=== PATIENT | male | born 1945 ===

== ENCOUNTER 2017-05-06 18:28 | Inpatient (IN) | payer MEDICARE, MEDICAID ==
[~2017-05-06] VITALS: Ht 165.1 cm; Wt 54.4 kg
[2017-05-06 19:00] VITALS: BP 123/67
[2017-05-06] MEDS ORDERED: PROTONIX IV40 MG IV (19:16)
[2017-05-06] MEDS ORDERED: DILAUDID 22 MG/1 M1 IJ (19:16)
[2017-05-06] MEDS ORDERED: ACETAMINOPHEN120 MG RECTAL (19:16)
[2017-05-06] MEDS ORDERED: DIPHENHYDRAMINE25 M1 ORAL (19:16)
[2017-05-06] MEDS ORDERED: OCTREOTIDE100 MCG/2 IJ (19:16)
[2017-05-06 21:12] LABS: BASOPHILS % (AUTO) 0.4 % (0.0-2.0); EOSINOPHILS % (AUTO) 0.1 % (0.0-3.0); MEAN CORPUSCULAR HEMOGLOBIN 32.1 PG (27.0-31.0); MEAN CORPUSCULAR VOLUME 94 FL (80-99); MEAN PLATELET VOLUME 15.3 FL (6.5-10.1); NEUTROPHILS % (AUTO) 78.5 % (45.0-75.0); PLATELET COUNT 241 K/UL (150-450); RED BLOOD COUNT 2.89 M/UL (4.70-6.10); RED CELL DISTRIBUTION WIDTH 17.7 % (11.6-14.8)
[2017-05-06 21:48] LABS: ALANINE AMINOTRANSFERASE 85 U/L (3-41); ALBUMIN/GLOBULIN RATIO 0.5 (1.0-2.7); ANION GAP 8 (5-15); ASPARTATE AMINO TRANSFERASE 115 U/L (5-40); CALCIUM 7.4 mg/dL (8.6-10.2); CARBON DIOXIDE 27 mEQ/L (20-30); CHLORIDE 104 mEQ/L (98-107); CREATININE 0.6 mg/dL (0.7-1.2); GLOMERULAR FILTRATION RATE > 60 mL/min (>60); HEMOLYSIS 1; SODIUM 139 mEQ/L (135-145); TOTAL PROTEIN 6.4 g/dL (6.6-8.7)
[2017-05-06 21:49] LABS: POTASSIUM 2.5 mEQ/L (3.4-4.9)
--- NOTE | 2017-05-06 21:56 | Emergency Room Report ---
History of Present Illness General Chief Complaint: Abnormal Labs Source: Patient, Family Member, Medical Record (LIO SMITH) Present Illness HPI The patient is a 71-year-old male with a history of neuroendocrine tumor, partial gastrectomy, pancreatectomy, and splenectomy presenting for hypokalemia. The patient had blood work done today which showed potassium of 2.9. He admits to chronic abdominal pain described as a 10 out of 10 diffuse dull ache. Pain does not radiate. He denies any other symptoms. He denies chest pain or shortness of breath (LIO SMITH P.AMary Kate) Allergies: Coded Allergies: LORAZEPAM (Verified Allergy, Unknown, 05/06/17) Patient History Past Medical History: see triage record Pertinent Family History: none Reviewed Nursing Documentation: PMH: Agreed, PSxH: Agreed (LIO SMITH) Nursing Documentation-PMH Past Medical History: No History, Except For (LIO SMITH.Tolu) Review of Systems All Other Systems: negative except mentioned in HPI (LIO SMITH P.AMary Kate) Physical Exam Vital Signs Date Time Temp Pulse Resp B/P Pulse Ox O2 Delivery O2 Flow Rate FiO2 05/06/17 18:23 98.8 65 18 123/67 94 Room Air Sp02 EP Interpretation: reviewed, normal General Appearance: no apparent distress, alert, GCS 15, non-toxic Head: normocephalic, atraumatic Eyes: bilateral eye PERRL, bilateral eye normal inspection ENT: hearing grossly normal, normal pharynx, no angioedema, normal voice Respiratory: chest non-tender, lungs clear, normal breath sounds, speaking full sentences Cardiovascular #1: regular rate, rhythm, no edema Gastrointestinal: soft, no guarding, tenderness - diffuse, other - surgical scars Genitourinary: normal inspection, no CVA tenderness Musculoskeletal: back normal, gait/station normal, normal range of motion, non- tender Neurologic: alert, oriented x3, responsive, motor strength/tone normal, sensory intact, speech normal Psychiatric: judgement/insight normal, memory normal, mood/affect normal, no suicidal/homicidal ideation Skin: normal color, no rash, warm/dry, well hydrated (LIO SMITH) Medical Decision Making PA Attestation Dr. Swan is my supervising physician. Patient management was discussed with my supervising physician (LIO SMITH) Diagnostic Impression: Primary Impression: Hypokalemia Additional Impression: Leukocytosis Qualified Codes: D72.828 - Other elevated white blood cell count ER Course The pt is a 71 yo M presenting for hypokalemia DDx considered but not limited to: hypokalemia, arrhythmia, MELIDA, among others PE: vitals WNL. NAD RRR. Abd is diffusely tender. CBC: leukocytosis, anemia CMP: Significant hypokalemia at 2.5 The patient is given fluids and pain medication through central line. 20 mEq of potassium replenished via central line. The patient needs to be admitted due to significant hypokalemia as well as leukocytosis. Adams has spoken with the admitting physician. Patient agrees with this plan Laboratory Tests Test 05/06/17 21:00 White Blood Count 15.0 K/UL (4.8-10.8) H Red Blood Count 2.89 M/UL (4.70-6.10) L Hemoglobin 9.3 G/DL (14.2-18.0) L Hematocrit 27.2 % (42.0-52.0) L Mean Corpuscular Volume 94 FL (80-99) Mean Corpuscular Hemoglobin 32.1 PG (27.0-31.0) H Mean Corpuscular Hemoglobin Concent 34.0 G/DL (32.0-36.0) Red Cell Distribution Width 17.7 % (11.6-14.8) H Platelet Count 241 K/UL (150-450) Mean Platelet Volume 15.3 FL (6.5-10.1) H Neutrophils (%) (Auto) 78.5 % (45.0-75.0) H Lymphocytes (%) (Auto) 18.0 % (20.0-45.0) L Monocytes (%) (Auto) 3.0 % (1.0-10.0) Eosinophils (%) (Auto) 0.1 % (0.0-3.0) Basophils (%) (Auto) 0.4 % (0.0-2.0) Sodium Level 139 mEQ/L (135-145) Potassium Level 2.5 mEQ/L (3.4-4.9) *L Chloride Level 104 mEQ/L (98-107) Carbon Dioxide Level 27 mEQ/L (20-30) Anion Gap 8 (5-15) Blood Urea Nitrogen 12 mg/dL (7-23) Creatinine 0.6 mg/dL (0.7-1.2) L Estimate Glomerular Filtration Rate > 60 mL/min (>60) Glucose Level 134 mg/dL (74-106) H Calcium Level 7.4 mg/dL (8.6-10.2) L Total Bilirubin 3.1 mg/dL (0.0-1.2) H Direct Bilirubin 2.3 mg/dL (0.1-0.3) H Aspartate Amino Transferase (AST) 115 U/L (5-40) H Alanine Aminotransferase (ALT) 85 U/L (3-41) H Alkaline Phosphatase 424 U/L (40-129) H Total Protein 6.4 g/dL (6.6-8.7) L Albumin 2.2 g/dL (3.5-5.2) L Globulin 4.2 g/dL Albumin/Globulin Ratio 0.5 (1.0-2.7) L Lab Results Impression CBC: leukocytosis, anemia CMP: Significant hypokalemia at 2.5 (LIO SMITH P.A.) ER Course I examined this patient and agree with the above assessment. I discussed the patient with Dr. Jiang who requested we speak with Dr. Swanson. Patient admitted medical floor Dr. Swanson. (Sahil Swan M.D.) Last Vital Signs Date Time Temp Pulse Resp B/P Pulse Ox O2 Delivery O2 Flow Rate FiO2 05/06/17 18:23 98.8 65 18 123/67 94 Room Air Status: improved (LIO SMITH P.A.) Last Vital Signs Date Time Temp Pulse Resp B/P Pulse Ox O2 Delivery O2 Flow Rate FiO2 05/06/17 18:23 98.8 65 18 123/67 94 Room Air Status: improved (Sahil Swan M.D.) Disposition: ADMITTED INPATIENT Condition: Serious LIO SMITH P.AMary Kate May 06, 2017 21:56 Sahil Swan M.D. May 07, 2017 02:13
[2017-05-06] MEDS ORDERED: HYDROmorphone 2 MG in NS 55 ML IVPB ONE (22:00)
[2017-05-06 22:08] LABS: BILIRUBIN,DIRECT 2.3 mg/dL (0.1-0.3)
[2017-05-06] MEDS ORDERED: DiphenhydrAMINE 50mg/ml Inj IVP ONE (22:30)
[2017-05-06] MEDS ORDERED: HYDROmorphone 1mg/ml Carpuject IVP ONE (23:55)
[2017-05-07] MEDS ORDERED: DiphenhydrAMINE 50mg/ml Inj IVP PRN (03:15)
[2017-05-07] MEDS ORDERED: Acetaminophen 650 MG SUPP RECTAL PRN (03:15)
[2017-05-07] MEDS ORDERED: Lactulose 20gm/30ml UDC ORAL PRN (03:15)
[2017-05-07] MEDS ORDERED: Norco 5mg/325mg tab ORAL PRN ×2 (03:15→05:15)
[2017-05-07 04:00] VITALS: BP 132/71
[2017-05-07] MEDS: SandoSTATIN 100mcg/ml amp SUBQ SCH ×3 (05:55→21:46)
[2017-05-07 08:00] VITALS: BP 149/77
[2017-05-07] MEDS: Dyna-Hex 2% Top Sol 8oz TOPIC SCH (09:42)
[2017-05-07] MEDS: Pantoprazole Inj IVP SCH (09:42)
[2017-05-07] MEDS: Heparin 5000 units/ml inj SUBQ SCH ×2 (09:43→20:19)
[2017-05-07 10:43] LABS: BASOPHILS % (AUTO) 0.7 % (0.0-2.0); EOSINOPHILS % (AUTO) 0.1 % (0.0-3.0); LYMPHOCYTES % (AUTO) 19.4 % (20.0-45.0); MEAN CORPUSCULAR HEMOGLOBIN 30.7 PG (27.0-31.0); MEAN CORPUSCULAR HGB CONC 32.2 G/DL (32.0-36.0); MEAN CORPUSCULAR VOLUME 95 FL (80-99); MEAN PLATELET VOLUME 13.5 FL (6.5-10.1); MONOCYTES % (AUTO) 3.2 % (1.0-10.0); NEUTROPHILS % (AUTO) 76.6 % (45.0-75.0); PLATELET COUNT 244 K/UL (150-450); RED BLOOD COUNT 3.08 M/UL (4.70-6.10); RED CELL DISTRIBUTION WIDTH 17.7 % (11.6-14.8); WHITE BLOOD COUNT 12.6 K/UL (4.8-10.8)
[2017-05-07 11:07] LABS: CALCIUM 7.8 mg/dL (8.6-10.2); CARBON DIOXIDE 25 mEQ/L (20-30); CHLORIDE 97 mEQ/L (98-107); CREATININE 0.6 mg/dL (0.7-1.2); GLOMERULAR FILTRATION RATE > 60 mL/min (>60); HEMOLYSIS 3; SODIUM 134 mEQ/L (135-145)
[2017-05-07 11:23] LABS: ANION GAP 12 (5-15)
[2017-05-07 11:24] LABS: POTASSIUM 2.7 mEQ/L (3.4-4.9)
[2017-05-07 12:00] VITALS: BP 142/68
[2017-05-07] MEDS: D5NS 1,000 ML IV SCH (15:53)
[2017-05-07 16:00] VITALS: BP 139/74
[2017-05-07 20:00] VITALS: BP 145/77
--- NOTE | 2017-05-07 21:45 | History and Physical Report ---
DATE OF ADMISSION: 05/06/2017 HISTORY OF PRESENT ILLNESS: This is a 71-year-old male that I know well from previous admissions at outside hospital. The patient has a history of partial gastrectomy for neuroendocrine gastric tumor. He had also undergone pancreatectomy and splenectomy at the same time. He had a prolonged hospitalization at that point in time and then he was discharged. He now represents to the [facility] with complaints of abdominal pain. He also reports feeling week. His initial potassium was 2.9. He was admitted to hospital for management of both the pain as well as correction of hypokalemia. PAST MEDICAL HISTORY: As discussed above is notable for neuroendocrine tumor, status post gastrectomy. HOME MEDICATIONS: The patient at this time denies and noted, however, he is on Pool, lactulose, and Protonix. REVIEW OF SYSTEMS: The patient denies any headache, hematemesis, melena, or hematochezia. PHYSICAL EXAMINATION: GENERAL: Revealed a 71-year-old male. HEENT: Unremarkable. CHEST: Clear breath sounds bilaterally. ABDOMEN: Soft and nontender. Surgical scars are noted. VITAL SIGNS: Blood pressure is 140/70, heart rate , respirations 18, and he is afebrile. LABORATORY DATA: Lab testing shows potassium this morning repeated is again 2.7 and sodium 134. White count 12.6 and hemoglobin 0.5. IMAGING STUDIES: None. IMPRESSION: 1. Hypokalemia. 2. Status post surgery for neuroendocrine tumor/partical gastrectomy. DISCUSSION: Admitted to the hospital. Continue home medications. We will consult Gastroenterology. Replace potassium. IV fluids. We will follow carefully. Vinnie Swanson M.D. DR: BENTLEY JOB#: [id number] CC:
--- NOTE | 2017-05-07 21:45 | Consultation ---
DATE OF CONSULTATION: 05/07/2017 CONSULTING PHYSICIAN: Ariel Trevizo M.D. REFERRING PHYSICIAN: Vinnie Swanson M.D. CHIEF COMPLAINT: Diarrhea and abdominal pain HISTORY OF PRESENT ILLNESS: This is a very pleasant unfortunate 71-year-old male who is having abdominal pain, GI bleeding from neuroendocrine tumor of the stomach, major surgery according to him. He was admitted to the hospital mainly because of diarrhea and abdominal pain. PAST MEDICAL HISTORY: 1. History of neuroendocrine tumor of the stomach, status post surgery. 2. Anemia. ALLERGIES: To lorazepam. MEDICATIONS: Please see medication reconciliation list. SOCIAL HISTORY: The patient denies any tobacco, alcohol, or illicit drug abuse. FAMILY HISTORY: Noncontributory. REVIEW OF SYSTEMS: A 10-point review of systems was performed and pertinent positives in history of present illness. PAST SURGICAL HISTORY: As described above. PHYSICAL EXAMINATION: VITAL SIGNS: Temperature is 97.2 degrees, pulse is 64, respirations 18, and blood pressure is 149/77. HEENT: Normocephalic and atraumatic. Sclerae anicteric. NECK: Supple. No lymphadenopathy. CARDIOVASCULAR: Regular rate and rhythm. Plus S1 and S2. No obvious murmur. LUNGS: Decreased breath sounds bilaterally. ABDOMEN: Soft. There is a scar in the midline from prior abdominal surgery. No rebound. No guarding. No peritoneal signs. Bowel sounds are present. EXTREMITIES: No cyanosis, no clubbing, and no edema. LABORATORY DATA: Sodium 134, potassium 2.7, BUN 16, and creatinine 0.6. Liver function tests elevated. Bilirubin 3.1, direct bilirubin 2.3. AST of 115, ALT of 84, and alkaline phosphatase of 424. White blood cell count of , hemoglobin 9.5, hematocrit 29, and platelets are 244,000. ASSESSMENT AND PLAN: 1. Neuroendocrine tumor of the stomach, status post surgery. 2. Diarrhea. 3. Rule out Clostridium difficile. 4. Anemia. 5. Abnormal liver function tests. PLAN: 1. Stool for C. difficile pending. We will follow. 2. We will repeat liver function tests tomorrow. 3. We will order an abdominal ultrasound. 4. We will order hepatitis panel. 5. Monitor labs. 6. Transfuse as needed. 7. Stool for OB ordered, pending. 8. Hold GI procedure at this time. I want to thank, Dr. Swanson, for this kind referral. Ariel Trevizo M.D. DR: ELSA JOB#: [id number] CC: Vinnie Swanson M.D.; Fax#: [phone]
[2017-05-08] VITALS (7 sets, daily range): BP systolic 143–167; BP diastolic 74–96
[2017-05-08] MEDS: D5NS 1,000 ML IV SCH ×2 (03:57→17:10)
[2017-05-08] MEDS: SandoSTATIN 100mcg/ml amp SUBQ SCH ×3 (05:37→22:51)
[2017-05-08 07:35] LABS: BASOPHILS % (AUTO) 1.3 % (0.0-2.0); EOSINOPHILS % (AUTO) 2.6 % (0.0-3.0); LYMPHOCYTES % (AUTO) 31.1 % (20.0-45.0); MEAN CORPUSCULAR HEMOGLOBIN 30.5 PG (27.0-31.0); MEAN CORPUSCULAR HGB CONC 31.9 G/DL (32.0-36.0); MEAN CORPUSCULAR VOLUME 96 FL (80-99); MEAN PLATELET VOLUME 13.9 FL (6.5-10.1); MONOCYTES % (AUTO) 9.9 % (1.0-10.0); NEUTROPHILS % (AUTO) 55.1 % (45.0-75.0); PLATELET COUNT 234 K/UL (150-450); RED BLOOD COUNT 3.13 M/UL (4.70-6.10); RED CELL DISTRIBUTION WIDTH 16.9 % (11.6-14.8); WHITE BLOOD COUNT 6.7 K/UL (4.8-10.8)
[2017-05-08 07:56] LABS: ALANINE AMINOTRANSFERASE 85 U/L (3-41); ALBUMIN/GLOBULIN RATIO 0.5 (1.0-2.7); ANION GAP 7 (5-15); ASPARTATE AMINO TRANSFERASE 115 U/L (5-40); CARBON DIOXIDE 30 mEQ/L (20-30); CHLORIDE 99 mEQ/L (98-107); CREATININE 0.8 mg/dL (0.7-1.2); GLOMERULAR FILTRATION RATE > 60 mL/min (>60); POTASSIUM 2.8 mEQ/L (3.4-4.9); SODIUM 136 mEQ/L (135-145); TOTAL PROTEIN 6.4 g/dL (6.6-8.7)
[2017-05-08 08:22] LABS: HEMOLYSIS 0; IRON 39 ug/dL (59-158); TOTAL IRON BINDING CAPACITY 187 ug/dL (250-400)
[2017-05-08 08:26] LABS: BILIRUBIN,DIRECT 2.2 mg/dL (0.1-0.3)
--- NOTE | 2017-05-08 08:35 | General Progress Note ---
Assessment/Plan Assessment/Plan ASSESSMENT AND PLAN: 1. Neuroendocrine tumor of the stomach, status post surgery. 2. Diarrhea. 3. Rule out Clostridium difficile. 4. Anemia. 5. Abnormal liver function tests. PLAN: 1. Stool for C. difficile pending. We will follow. 2. We will repeat liver function tests tomorrow. 3. abdominal ultrasound pend for today 4. fu hepatitis panel. 5. Monitor labs. 6. Transfuse as needed. 7. Stool for OB ordered, pending. 8. Hold GI procedure at this time. Subjective ROS Limited/Unobtainable: Yes Allergies: Coded Allergies: LORAZEPAM (Verified Allergy, Unknown, 05/06/17) Subjective no event Objective Last 24 Hour Vital Signs Date Time Temp Pulse Resp B/P Pulse Ox O2 Delivery O2 Flow Rate FiO2 05/08/17 04:00 98.4 61 20 143/89 98 Room Air 05/08/17 00:00 98.1 68 20 147/91 97 Room Air 05/07/17 20:00 97.9 64 20 145/77 96 Room Air 05/07/17 16:24 97.2 05/07/17 16:00 98.0 60 18 139/74 99 Room Air 05/07/17 12:00 98.0 60 18 142/68 98 Room Air Intake and Output 05/07/17 05/08/17 19:00 07:00 Intake Total 705 ml 975 ml Output Total 850 ml Balance 705 ml 125 ml Intake Oral 480 ml IV Total 225 ml 975 ml Output Urine Total 850 ml # Voids 4 # Bowel Movements 2 Laboratory Tests 05/07/17 09:50: White Blood Count 12.6H, Red Blood Count 3.08L, Hemoglobin 9.5L, Hematocrit 29.4L, Mean Corpuscular Volume 95, Mean Corpuscular Hemoglobin 30.7, Mean Corpuscular Hemoglobin Concent 32.2, Red Cell Distribution Width 17.7H, Platelet Count 244, Mean Platelet Volume 13.5H, Neutrophils (%) (Auto) 76.6H, Lymphocytes (%) (Auto) 19.4L, Monocytes (%) (Auto) 3.2, Eosinophils (%) (Auto) 0.1, Basophils (%) (Auto) 0.7, Sodium Level 134L, Potassium Level 2.7*L, Chloride Level 97L, Carbon Dioxide Level 25, Anion Gap 12, Blood Urea Nitrogen 13, Creatinine 0.6L, Estimat Glomerular Filtration Rate > 60, Glucose Level 115H , Calcium Level 7.8L, Pro-B-Type Natriuretic Peptide 630H 05/07/17 15:15: Stool Occult Blood [Pending] 05/08/17 06:00: White Blood Count 6.7, Red Blood Count 3.13L, Hemoglobin 9.5L, Hematocrit 29.9L , Mean Corpuscular Volume 96, Mean Corpuscular Hemoglobin 30.5, Mean Corpuscular Hemoglobin Concent 31.9L, Red Cell Distribution Width 16.9H, Platelet Count 234, Mean Platelet Volume 13.9H, Neutrophils (%) (Auto) 55.1, Lymphocytes (%) (Auto) 31.1, Monocytes (%) (Auto) 9.9, Eosinophils (%) (Auto) 2.6, Basophils (%) (Auto) 1.3, Sodium Level 136, Potassium Level 2.8L, Chloride Level 99, Carbon Dioxide Level 30, Anion Gap 7, Blood Urea Nitrogen 13, Creatinine 0.8, Estimat Glomerular Filtration Rate > 60, Glucose Level 104, Calcium Level 8.0L, Iron Level 39L, Total Iron Binding Capacity 187L, Percent Iron Saturation 21, Unsaturated Iron Binding 148, Total Bilirubin 3.1H, Direct Bilirubin 2.2H, Aspartate Amino Transf (AST/SGOT) 115H, Alanine Aminotransferase (ALT/SGPT) 85H, Alkaline Phosphatase 424H, Total Protein 6.4L, Albumin 2.2L, Globulin 4.2, Albumin/Globulin Ratio 0.5L, Carcinoembryonic Antigen 6.0H, Vitamin B12 Level 1546H, Folate [Pending], Hepatitis A IgM Antibody [Pending], Hepatitis B Surface Antigen [Pending], Hepatitis B Core IgM Antibody [Pending], Hepatitis C Antibody [Pending] Height (Feet): 5 Height (Inches): 5.00 Weight (Pounds): 120 General Appearance: alert EENT: normal ENT inspection Neck: supple Cardiovascular: normal rate Respiratory/Chest: decreased breath sounds Abdomen: normal bowel sounds, non tender, soft Extremities: non-tender MISHA LUNA May 08, 2017 08:35
[2017-05-08] MEDS ORDERED: KCl 10% 40mEq/30ml liquid NG ONE (09:30)
--- NOTE | 2017-05-08 09:48 | Pulmonology Progress Note ---
Assessment/Plan Assessment/Plan IMPRESSION: 1. Hypokalemia. 2. Status post surgery for neuroendocrine tumor/partical gastrectomy. DISCUSSION: Seen by Gastroenterology. Replace potassium. IV fluids. We will follow carefully. Subjective Interval Events: Better; pain decreased Constitutional: Reports: no symptoms HEENT: Repors: no symptoms Respiratory: Reports: no symptoms Cardiovascular: Reports: no symptoms Allergies: Coded Allergies: LORAZEPAM (Verified Allergy, Unknown, 05/06/17) Objective Last 24 Hour Vital Signs Date Time Temp Pulse Resp B/P Pulse Ox O2 Delivery O2 Flow Rate FiO2 05/08/17 04:00 98.4 61 20 143/89 98 Room Air 05/08/17 00:00 98.1 68 20 147/91 97 Room Air 05/07/17 20:00 97.9 64 20 145/77 96 Room Air 05/07/17 16:24 97.2 05/07/17 16:00 98.0 60 18 139/74 99 Room Air 05/07/17 12:00 98.0 60 18 142/68 98 Room Air Intake and Output 05/07/17 05/08/17 19:00 07:00 Intake Total 705 ml 975 ml Output Total 850 ml Balance 705 ml 125 ml Intake Oral 480 ml IV Total 225 ml 975 ml Output Urine Total 850 ml # Voids 4 # Bowel Movements 2 General Appearance: no acute distress HEENT: normocephalic Respiratory/Chest: chest wall non-tender, lungs clear Cardiovascular: normal peripheral pulses, normal rate Laboratory Tests 05/07/17 09:50: White Blood Count 12.6H, Red Blood Count 3.08L, Hemoglobin 9.5L, Hematocrit 29.4L, Mean Corpuscular Volume 95, Mean Corpuscular Hemoglobin 30.7, Mean Corpuscular Hemoglobin Concent 32.2, Red Cell Distribution Width 17.7H, Platelet Count 244, Mean Platelet Volume 13.5H, Neutrophils (%) (Auto) 76.6H, Lymphocytes (%) (Auto) 19.4L, Monocytes (%) (Auto) 3.2, Eosinophils (%) (Auto) 0.1, Basophils (%) (Auto) 0.7, Sodium Level 134L, Potassium Level 2.7*L, Chloride Level 97L, Carbon Dioxide Level 25, Anion Gap 12, Blood Urea Nitrogen 13, Creatinine 0.6L, Estimat Glomerular Filtration Rate > 60, Glucose Level 115H , Calcium Level 7.8L, Pro-B-Type Natriuretic Peptide 630H 05/07/17 15:15: Stool Occult Blood Negative 05/08/17 06:00: White Blood Count 6.7, Red Blood Count 3.13L, Hemoglobin 9.5L, Hematocrit 29.9L , Mean Corpuscular Volume 96, Mean Corpuscular Hemoglobin 30.5, Mean Corpuscular Hemoglobin Concent 31.9L, Red Cell Distribution Width 16.9H, Platelet Count 234, Mean Platelet Volume 13.9H, Neutrophils (%) (Auto) 55.1, Lymphocytes (%) (Auto) 31.1, Monocytes (%) (Auto) 9.9, Eosinophils (%) (Auto) 2.6, Basophils (%) (Auto) 1.3, Sodium Level 136, Potassium Level 2.8L, Chloride Level 99, Carbon Dioxide Level 30, Anion Gap 7, Blood Urea Nitrogen 13, Creatinine 0.8, Estimat Glomerular Filtration Rate > 60, Glucose Level 104, Calcium Level 8.0L, Iron Level 39L, Total Iron Binding Capacity 187L, Percent Iron Saturation 21, Unsaturated Iron Binding 148, Total Bilirubin 3.1H, Direct Bilirubin 2.2H, Aspartate Amino Transf (AST/SGOT) 115H, Alanine Aminotransferase (ALT/SGPT) 85H, Alkaline Phosphatase 424H, Total Protein 6.4L, Albumin 2.2L, Globulin 4.2, Albumin/Globulin Ratio 0.5L, Carcinoembryonic Antigen 6.0H, Vitamin B12 Level 1546H, Folate [Pending], Hepatitis A IgM Antibody [Pending], Hepatitis B Surface Antigen [Pending], Hepatitis B Core IgM Antibody [Pending], Hepatitis C Antibody [Pending] Current Medications Medications (Trade) Dose Ordered Sig/Horacio Route PRN Reason Start Time Stop Time Status Last Admin Dose Admin Acetaminophen (Tylenol) 650 mg Q6H PRN RECTAL Prn Headache/Temp > 101 05/07/17 03:15 06/06/17 03:14 Acetaminophen/ Hydrocodone Bitart (Sheldon 5/325) 1 tab Q6H PRN ORAL Moderate Pain (Pain Scale 4-6) 05/07/17 05:15 05/14/17 05:14 05/07/17 05:17 Chlorhexidine Gluconate 1 applic 1 applic DAILY TOPIC 05/07/17 09:00 06/06/17 08:59 05/07/17 09:42 Dextrose/Sodium Chloride 1,000 ml @ 75 mls/hr [id number] IV 05/07/17 14:30 06/06/17 14:29 05/08/17 03:57 Diphenhydramine HCl (Benadryl) 25 mg BEDTIME PRN IVP INSOMNIA 05/07/17 03:15 06/06/17 03:14 Heparin Sodium (Porcine) (Heparin 5000 units/ml) 5,000 units EVERY 12 HOURS SUBQ 05/07/17 09:00 06/06/17 08:59 05/07/17 20:19 Hydromorphone HCl (Dilaudid) 2 mg Q3H PRN IVP Severe Breakthru Pain (>7) 05/07/17 03:15 05/14/17 03:14 05/08/17 05:39 Lactulose (Cephulac) 20 gm HSPRN PRN ORAL Constipation 05/07/17 03:15 06/06/17 03:14 05/07/17 05:16 Octreotide Acetate (SandoSTATIN) 100 mcg Q8HR SUBQ 05/07/17 06:00 06/06/17 05:59 05/08/17 05:37 Pantoprazole (Protonix) 40 mg DAILY IVP 05/07/17 09:00 06/06/17 08:59 05/07/17 09:42 Potassium Chloride (KCl 20mEq/100ml Premix) 100 ml @ 50 mls/hr ONCE ONCE IVPB 05/08/17 10:00 05/08/17 11:59 Vinnie Swanson MD May 08, 2017 09:48
[2017-05-08] MEDS: Dyna-Hex 2% Top Sol 8oz TOPIC SCH (10:11)
[2017-05-08] MEDS: Pantoprazole Inj IVP SCH (10:12)
[2017-05-08] MEDS: Heparin 5000 units/ml inj SUBQ SCH ×2 (10:16→20:42)
[2017-05-08] MEDS ORDERED: D5NS 1000ml IV ONE (10:19)
[2017-05-08] MEDS ORDERED: Tubing IV Secondary IV ONE (15:49)
[2017-05-09] VITALS (7 sets, daily range): BP systolic 143–174; BP diastolic 83–94
[2017-05-09] MEDS: D5NS 1,000 ML IV SCH ×2 (01:00→21:54)
[2017-05-09] MEDS: SandoSTATIN 100mcg/ml amp SUBQ SCH ×3 (05:51→22:17)
[2017-05-09 05:58] LABS: BASOPHILS % (AUTO) 1.5 % (0.0-2.0); EOSINOPHILS % (AUTO) 2.1 % (0.0-3.0); LYMPHOCYTES % (AUTO) 46.8 % (20.0-45.0); MEAN CORPUSCULAR HEMOGLOBIN 29.7 PG (27.0-31.0); MEAN CORPUSCULAR HGB CONC 31.6 G/DL (32.0-36.0); MEAN CORPUSCULAR VOLUME 94 FL (80-99); MEAN PLATELET VOLUME 13.3 FL (6.5-10.1); NEUTROPHILS % (AUTO) 39.6 % (45.0-75.0); PLATELET COUNT 267 K/UL (150-450); RED BLOOD COUNT 3.39 M/UL (4.70-6.10); RED CELL DISTRIBUTION WIDTH 16.8 % (11.6-14.8); WHITE BLOOD COUNT 5.4 K/UL (4.8-10.8)
[2017-05-09 06:10] LABS: ALANINE AMINOTRANSFERASE 84 U/L (3-41); ALBUMIN/GLOBULIN RATIO 0.5 (1.0-2.7); ASPARTATE AMINO TRANSFERASE 100 U/L (5-40); CALCIUM 7.9 mg/dL (8.6-10.2); CARBON DIOXIDE 33 mEQ/L (20-30); CHLORIDE 94 mEQ/L (98-107); CREATININE 0.7 mg/dL (0.7-1.2); GLOMERULAR FILTRATION RATE > 60 mL/min (>60); HEMOLYSIS 2; SODIUM 134 mEQ/L (135-145); TOTAL PROTEIN 6.7 g/dL (6.6-8.7)
[2017-05-09 06:15] LABS: ANION GAP 7 (5-15)
[2017-05-09 06:41] LABS: POTASSIUM 2.7 mEQ/L (3.4-4.9)
[2017-05-09 07:00] LABS: BILIRUBIN,DIRECT 2.2 mg/dL (0.1-0.3)
[2017-05-09 07:55] LABS: MAGNESIUM 1.8 mg/dL (1.7-2.5); PHOSPHORUS 1.9 mg/dL (2.5-4.8)
[2017-05-09] MEDS: Pantoprazole Inj IVP SCH (08:26)
[2017-05-09] MEDS: Dyna-Hex 2% Top Sol 8oz TOPIC SCH (08:28)
[2017-05-09] MEDS: Heparin 5000 units/ml inj SUBQ SCH ×2 (08:28→22:01)
[2017-05-09] MEDS ORDERED: Sodium Phosphate 30 MM in Sodium Chloride 550 ML IVPB ONE (11:00)
--- NOTE | 2017-05-09 13:35 | GI Progress Note ---
Assessment/Plan Status: unchanged Status Narrative Discussed with Dr. Trevizo. Assessment/Plan ASSESSMENT AND PLAN: 1. Neuroendocrine tumor of the stomach, status post surgery. >> KEEP NPO, will start TPN. 2. Diarrhea. 3. Rule out Clostridium difficile >> negative 4. Anemia. 5. Abnormal liver function tests. 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, transfuse prn fu OB stool hold GI procedures for now fu labs Subjective Subjective limited Objective Last 24 Hour Vital Signs Date Time Temp Pulse Resp B/P Pulse Ox O2 Delivery O2 Flow Rate FiO2 05/09/17 12:00 97.0 66 20 150/84 99 Room Air 05/09/17 08:00 98.6 63 20 174/86 99 Room Air 05/09/17 04:00 97.3 65 18 151/83 97 Room Air 05/09/17 03:34 98.1 05/09/17 01:00 66 159/91 05/09/17 00:00 97.9 65 20 167/94 99 Room Air 05/08/17 20:35 98.1 67 18 153/74 98 Room Air 05/08/17 20:00 97.9 64 18 167/96 97 Room Air 05/08/17 16:00 98.1 69 18 153/91 97 Room Air Intake and Output 05/08/17 05/09/17 19:00 07:00 Intake Total 1525 ml 675 ml Balance 1525 ml 675 ml Intake Oral 800 ml IV Total 725 ml 675 ml # Voids 4 Laboratory Tests Test 05/09/17 05:07 05/09/17 05:09 Phosphorus Level 1.9 mg/dL (2.5-4.8) L Magnesium Level 1.8 mg/dL (1.7-2.5) White Blood Count 5.4 K/UL (4.8-10.8) Red Blood Count 3.39 M/UL (4.70-6.10) L Hemoglobin 10.1 G/DL (14.2-18.0) L Hematocrit 31.9 % (42.0-52.0) L Mean Corpuscular Volume 94 FL (80-99) Mean Corpuscular Hemoglobin 29.7 PG (27.0-31.0) Mean Corpuscular Hemoglobin Concent 31.6 G/DL (32.0-36.0) L Red Cell Distribution Width 16.8 % (11.6-14.8) H Platelet Count 267 K/UL (150-450) Mean Platelet Volume 13.3 FL (6.5-10.1) H Neutrophils (%) (Auto) 39.6 % (45.0-75.0) L Lymphocytes (%) (Auto) 46.8 % (20.0-45.0) H Monocytes (%) (Auto) 10.0 % (1.0-10.0) Eosinophils (%) (Auto) 2.1 % (0.0-3.0) Basophils (%) (Auto) 1.5 % (0.0-2.0) Sodium Level 134 mEQ/L (135-145) L Potassium Level 2.7 mEQ/L (3.4-4.9) *L Chloride Level 94 mEQ/L (98-107) L Carbon Dioxide Level 33 mEQ/L (20-30) H Anion Gap 7 (5-15) Blood Urea Nitrogen 8 mg/dL (7-23) Creatinine 0.7 mg/dL (0.7-1.2) Estimat Glomerular Filtration Rate > 60 mL/min (>60) Glucose Level 143 mg/dL (74-106) H Calcium Level 7.9 mg/dL (8.6-10.2) L Total Bilirubin 3.2 mg/dL (0.0-1.2) H Direct Bilirubin 2.2 mg/dL (0.1-0.3) H Aspartate Amino Transf (AST/SGOT) 100 U/L (5-40) H Alanine Aminotransferase (ALT/SGPT) 84 U/L (3-41) H Alkaline Phosphatase 444 U/L (40-129) H Total Protein 6.7 g/dL (6.6-8.7) Albumin 2.4 g/dL (3.5-5.2) L Globulin 4.3 g/dL Albumin/Globulin Ratio 0.5 (1.0-2.7) L Height (Feet): 5 Height (Inches): 5.00 Weight (Pounds): 120 General Appearance: no apparent distress, alert Cardiovascular: normal rate Respiratory/Chest: no respiratory distress Abdominal Exam: normal bowel sounds, non tender, soft Hutson,Radha Enio N.P. May 09, 2017 13:35
--- NOTE | 2017-05-09 13:41 | Pulmonology Progress Note ---
Assessment/Plan Assessment/Plan IMPRESSION: 1. Hypokalemia. 2. Status post surgery for neuroendocrine tumor/partical gastrectomy. DISCUSSION: Seen by Gastroenterology. Replace potassium. IV fluids. Will check UGI series and US abd Subjective Interval Events: States he is bettr; no new problems Constitutional: Reports: no symptoms HEENT: Repors: no symptoms Respiratory: Reports: no symptoms Cardiovascular: Reports: no symptoms Allergies: Coded Allergies: LORAZEPAM (Verified Allergy, Unknown, 05/06/17) Objective Last 24 Hour Vital Signs Date Time Temp Pulse Resp B/P Pulse Ox O2 Delivery O2 Flow Rate FiO2 05/09/17 12:00 97.0 66 20 150/84 99 Room Air 05/09/17 08:00 98.6 63 20 174/86 99 Room Air 05/09/17 04:00 97.3 65 18 151/83 97 Room Air 05/09/17 03:34 98.1 05/09/17 01:00 66 159/91 05/09/17 00:00 97.9 65 20 167/94 99 Room Air 05/08/17 20:35 98.1 67 18 153/74 98 Room Air 05/08/17 20:00 97.9 64 18 167/96 97 Room Air 05/08/17 16:00 98.1 69 18 153/91 97 Room Air Intake and Output 05/08/17 05/09/17 19:00 07:00 Intake Total 1525 ml 675 ml Balance 1525 ml 675 ml Intake Oral 800 ml IV Total 725 ml 675 ml # Voids 4 General Appearance: no acute distress HEENT: normocephalic Respiratory/Chest: chest wall non-tender, lungs clear Cardiovascular: normal peripheral pulses, normal rate Abdomen: normal bowel sounds Microbiology Date/Time Source Procedure Growth Status 05/07/17 15:15 Stool Clostridium difficile Toxin Assay - Final Complete Laboratory Tests 05/09/17 05:07: Phosphorus Level 1.9L, Magnesium Level 1.8 05/09/17 05:09: White Blood Count 5.4, Red Blood Count 3.39L, Hemoglobin 10.1L, Hematocrit 31.9L , Mean Corpuscular Volume 94, Mean Corpuscular Hemoglobin 29.7, Mean Corpuscular Hemoglobin Concent 31.6L, Red Cell Distribution Width 16.8H, Platelet Count 267, Mean Platelet Volume 13.3H, Neutrophils (%) (Auto) 39.6L, Lymphocytes (%) (Auto) 46.8H, Monocytes (%) (Auto) 10.0, Eosinophils (%) (Auto) 2.1, Basophils (%) (Auto) 1.5, Sodium Level 134L, Potassium Level 2.7*L, Chloride Level 94L, Carbon Dioxide Level 33H, Anion Gap 7, Blood Urea Nitrogen 8 , Creatinine 0.7, Estimat Glomerular Filtration Rate > 60, Glucose Level 143H, Calcium Level 7.9L, Total Bilirubin 3.2H, Direct Bilirubin 2.2H, Aspartate Amino Transf (AST/SGOT) 100H, Alanine Aminotransferase (ALT/SGPT) 84H, Alkaline Phosphatase 444H, Total Protein 6.7, Albumin 2.4L, Globulin 4.3, Albumin/ Globulin Ratio 0.5L Current Medications Medications (Trade) Dose Ordered Sig/Horacio Route PRN Reason Start Time Stop Time Status Last Admin Dose Admin Acetaminophen (Tylenol) 650 mg Q6H PRN RECTAL Prn Headache/Temp > 101 05/07/17 03:15 06/06/17 03:14 Acetaminophen/ Hydrocodone Bitart ([place]thren 5/325) 1 tab Q6H PRN ORAL Moderate Pain (Pain Scale 4-6) 05/07/17 05:15 05/14/17 05:14 05/07/17 05:17 Chlorhexidine Gluconate 1 applic 1 applic DAILY TOPIC 05/07/17 09:00 06/06/17 08:59 05/09/17 08:28 Dextrose/Sodium Chloride (D5ns) 1,000 ml @ 75 mls/hr [id number] IV 05/07/17 14:30 06/06/17 14:29 05/09/17 01:00 Diphenhydramine HCl (Benadryl) 25 mg BEDTIME PRN IVP INSOMNIA 05/07/17 03:15 06/06/17 03:14 05/08/17 23:48 Heparin Sodium (Porcine) (Heparin 5000 units/ml) 5,000 units EVERY 12 HOURS SUBQ 05/07/17 09:00 06/06/17 08:59 05/09/17 08:28 Hydromorphone HCl (Dilaudid) 2 mg Q3H PRN IVP Severe Breakthru Pain (>7) 05/07/17 03:15 05/14/17 03:14 05/09/17 11:19 Lactulose (Cephulac) 20 gm HSPRN PRN ORAL Constipation 05/07/17 03:15 06/06/17 03:14 05/07/17 05:16 Octreotide Acetate (SandoSTATIN) 100 mcg Q8HR SUBQ 05/07/17 06:00 06/06/17 05:59 05/09/17 05:51 Ondansetron HCl 4 mg 4 mg Q6H PRN IVP Nausea & Vomiting 05/08/17 15:00 06/07/17 14:59 05/09/17 08:26 Pantoprazole (Protonix) 40 mg DAILY IVP 05/07/17 09:00 06/06/17 08:59 05/09/17 08:26 Potassium Chloride 100 ml @ 100 mls/hr Q1HR IVPB 05/09/17 15:00 05/09/17 18:59 Sodium Phosphate/ Sodium Chloride (NaPO4/NS) 560 ml @ 93.333 mls/ hr ONCE ONCE IVPB 05/09/17 11:00 05/09/17 16:59 Vinnie Swanson MD May 09, 2017 13:41
[2017-05-10] VITALS: BP 161/96
[2017-05-10 04:00] VITALS: BP 101/60
[2017-05-10] MEDS: SandoSTATIN 100mcg/ml amp SUBQ SCH ×3 (05:42→20:55)
[2017-05-10 06:57] LABS: BASOPHILS % (AUTO) 1.2 % (0.0-2.0); EOSINOPHILS % (AUTO) 5.2 % (0.0-3.0); LYMPHOCYTES % (AUTO) 33.8 % (20.0-45.0); MEAN CORPUSCULAR HEMOGLOBIN 30.7 PG (27.0-31.0); MEAN CORPUSCULAR HGB CONC 31.9 G/DL (32.0-36.0); MEAN CORPUSCULAR VOLUME 96 FL (80-99); MEAN PLATELET VOLUME 12.2 FL (6.5-10.1); MONOCYTES % (AUTO) 10.2 % (1.0-10.0); NEUTROPHILS % (AUTO) 49.6 % (45.0-75.0); PLATELET COUNT 231 K/UL (150-450); RED BLOOD COUNT 3.35 M/UL (4.70-6.10); RED CELL DISTRIBUTION WIDTH 16.2 % (11.6-14.8); WHITE BLOOD COUNT 6.6 K/UL (4.8-10.8)
[2017-05-10 07:29] LABS: ANION GAP 12 (5-15); CALCIUM 8.3 mg/dL (8.6-10.2); CARBON DIOXIDE 30 mEQ/L (20-30); CHLORIDE 97 mEQ/L (98-107); CREATININE 0.7 mg/dL (0.7-1.2); GLOMERULAR FILTRATION RATE > 60 mL/min (>60); HEMOLYSIS 0; POTASSIUM 3.1 mEQ/L (3.4-4.9); SODIUM 139 mEQ/L (135-145)
--- NOTE | 2017-05-10 07:53 | Pulmonology Progress Note ---
Assessment/Plan Assessment/Plan IMPRESSION: 1. Hypokalemia. Today K 3.1 2. Status post surgery for neuroendocrine tumor/partical gastrectomy. DISCUSSION: Seen by Gastroenterology. Replace potassium. IV fluids. Await UGI series and US abd Subjective Interval Events: For UGI this AM; no new problems Constitutional: Reports: no symptoms HEENT: Repors: no symptoms Respiratory: Reports: no symptoms Cardiovascular: Reports: no symptoms Gastrointestinal/Abdominal: Reports: no symptoms Allergies: Coded Allergies: LORAZEPAM (Verified Allergy, Unknown, 05/06/17) Objective Last 24 Hour Vital Signs Date Time Temp Pulse Resp B/P Pulse Ox O2 Delivery O2 Flow Rate FiO2 05/10/17 04:45 98.0 05/10/17 04:00 98.2 87 20 101/60 95 Room Air 05/10/17 00:00 98.0 73 20 161/96 98 Room Air 05/09/17 20:00 98.4 68 20 143/86 98 Room Air 05/09/17 16:00 98.1 69 20 158/87 98 Room Air 05/09/17 12:00 97.0 66 20 150/84 99 Room Air 05/09/17 08:00 98.6 63 20 174/86 99 Room Air Intake and Output 05/09/17 05/10/17 19:00 07:00 Intake Total 375 ml 825 ml Output Total 1450 ml Balance 375 ml -625 ml Intake Oral 300 ml IV Total 75 ml 825 ml Output Urine Total 1450 ml # Voids 6 # Bowel Movements 1 General Appearance: no acute distress HEENT: normocephalic Respiratory/Chest: chest wall non-tender Cardiovascular: normal peripheral pulses, normal rate Abdomen: hypoactive bowel sounds Microbiology Date/Time Source Procedure Growth Status 05/07/17 15:15 Stool Clostridium difficile Toxin Assay - Final Complete Laboratory Tests 05/10/17 06:00: White Blood Count 6.6, Red Blood Count 3.35L, Hemoglobin 10.3L, Hematocrit 32.3L , Mean Corpuscular Volume 96, Mean Corpuscular Hemoglobin 30.7, Mean Corpuscular Hemoglobin Concent 31.9L, Red Cell Distribution Width 16.2H, Platelet Count 231, Mean Platelet Volume 12.2H, Neutrophils (%) (Auto) 49.6, Lymphocytes (%) (Auto) 33.8, Monocytes (%) (Auto) 10.2H, Eosinophils (%) (Auto) 5.2H, Basophils (%) (Auto) 1.2, Sodium Level 139, Potassium Level 3.1L, Chloride Level 97L, Carbon Dioxide Level 30, Anion Gap 12, Blood Urea Nitrogen 8 , Creatinine 0.7, Estimat Glomerular Filtration Rate > 60, Glucose Level 145H, Calcium Level 8.3L Current Medications Medications (Trade) Dose Ordered Sig/Horacio Route PRN Reason Start Time Stop Time Status Last Admin Dose Admin Acetaminophen (Tylenol) 650 mg Q6H PRN RECTAL Prn Headache/Temp > 101 05/07/17 03:15 06/06/17 03:14 Acetaminophen/ Hydrocodone Bitart ([place] 5/325) 1 tab Q6H PRN ORAL Moderate Pain (Pain Scale 4-6) 05/07/17 05:15 05/14/17 05:14 05/07/17 05:17 Chlorhexidine Gluconate 1 applic 1 applic DAILY TOPIC 05/07/17 09:00 06/06/17 08:59 05/09/17 08:28 Dextrose/Sodium Chloride (D5ns) 1,000 ml @ 75 mls/hr [id number] IV 05/07/17 14:30 06/06/17 14:29 05/09/17 21:54 Diphenhydramine HCl (Benadryl) 25 mg BEDTIME PRN IVP INSOMNIA 05/07/17 03:15 06/06/17 03:14 05/08/17 23:48 Heparin Sodium (Porcine) (Heparin 5000 units/ml) 5,000 units EVERY 12 HOURS SUBQ 05/07/17 09:00 06/06/17 08:59 05/09/17 22:01 Hydromorphone HCl (Dilaudid) 2 mg Q3H PRN IVP Severe Breakthru Pain (>7) 05/07/17 03:15 05/14/17 03:14 05/10/17 04:13 Lactulose (Cephulac) 20 gm HSPRN PRN ORAL Constipation 05/07/17 03:15 06/06/17 03:14 05/07/17 05:16 Octreotide Acetate (SandoSTATIN) 100 mcg Q8HR SUBQ 05/07/17 06:00 06/06/17 05:59 05/10/17 05:42 Ondansetron HCl (Zofran) 4 mg Q6H PRN IVP Nausea & Vomiting 05/08/17 15:00 06/07/17 14:59 05/10/17 00:59 Pantoprazole (Protonix) 40 mg DAILY IVP 05/07/17 09:00 06/06/17 08:59 05/09/17 08:26 Vinnie Swanson MD May 10, 2017 07:53
[2017-05-10 08:00] VITALS: BP 154/97
[2017-05-10] MEDS ORDERED: KCl 10% 40mEq/30ml liquid NG ONE (08:30)
[2017-05-10] MEDS: Heparin 5000 units/ml inj SUBQ SCH ×2 (08:45→20:59)
[2017-05-10] MEDS: Pantoprazole Inj IVP SCH (08:45)
[2017-05-10] MEDS: Dyna-Hex 2% Top Sol 8oz TOPIC SCH (08:55)
[2017-05-10] MEDS: D5NS 1,000 ML IV SCH (08:55)
[2017-05-10] MEDS ORDERED: D5 1/2NS 1000ml IV ONE (09:40)
[2017-05-10 12:11] VITALS: BP 161/100
--- NOTE | 2017-05-10 12:12 | Diagnostic Imaging Report ---
Indication: History of partial gastrectomy for tumor involving the upper stomach. Subsequent leaks have been documented with workup done elsewhere. Patient presents for Gastrografin upper GI contrast examination to assess for "an anastomotic leak" Comparison: None Findings: The hose suspender cutter film for the upper GI shows extensive amount of contrast material in the left upper quadrant of the abdomen within loops of what appear to be large bowel. The amount of contrast present would most likely result in a nondiagnostic exam looking for a small leak in this area. Suggest clearance of the contrast and repeat KUB. Extensive diverticulosis noted within the colon. Impression: Extensive contrast material within the upper abdomen (presumably from a CT or contrast examination done recently at an outside facility). This would most likely result in a nondiagnostic upper GI exam. Contrast should be cleared first before upper GI exam is attempted.
--- NOTE | 2017-05-10 14:30 | GI Progress Note ---
Assessment/Plan Problems: (1) Transaminitis ICD Codes: R74.0 - Nonspecific elevation of levels of transaminase and lactic acid dehydrogenase [LDH] SNOMED: 534488292 (2) Hypoalbuminemia ICD Codes: E88.09 - Other disorders of plasma-protein metabolism, not elsewhere classified SNOMED: 069384680 (3) Anemia ICD Codes: D64.9 - Anemia, unspecified SNOMED: 178013584 (4) History of gastrectomy ICD Codes: Z90.3 - Acquired absence of stomach [part of] SNOMED: 56774813, 357177239 (5) Leukocytosis ICD Codes: D72.829 - Elevated white blood cell count, unspecified SNOMED: 326863497, 950499794 Qualifiers: Qualified Codes: D72.828 - Other elevated white blood cell count (6) Hypokalemia ICD Codes: E87.6 - Hypokalemia SNOMED: 98727758, 195651354 Status: unchanged Status Narrative Discussed with Dr. Trevizo. Assessment/Plan ASSESSMENT AND PLAN: 1. Neuroendocrine tumor of the stomach, tumor/partical gastrectomy. >> KEEP NPO. Start TPN. 2. Diarrhea. 3. Rule out Clostridium difficile >> negative 4. Anemia. 5. Abnormal liver function tests. hepatitis panel >> negative OB stool negative PLAN: start TPN fu UGI r/o anastomotic leak from gastrectomy monitor LFTs monitor H&H, transfuse prn hold GI procedures for now fu labs Subjective Subjective limited Objective Last 24 Hour Vital Signs Date Time Temp Pulse Resp B/P Pulse Ox O2 Delivery O2 Flow Rate FiO2 05/10/17 12:11 97.0 75 16 161/100 98 Room Air 05/10/17 08:00 97.3 73 18 154/97 98 Room Air 05/10/17 04:45 98.0 05/10/17 04:00 98.2 87 20 101/60 95 Room Air 05/10/17 00:00 98.0 73 20 161/96 98 Room Air 05/09/17 20:00 98.4 68 20 143/86 98 Room Air 05/09/17 16:00 98.1 69 20 158/87 98 Room Air Intake and Output 05/09/17 05/10/17 19:00 07:00 Intake Total 375 ml 900 ml Output Total 1450 ml Balance 375 ml -550 ml Intake Oral 300 ml IV Total 75 ml 900 ml Output Urine Total 1450 ml # Voids 6 # Bowel Movements 1 Laboratory Tests Test 05/10/17 06:00 White Blood Count 6.6 K/UL (4.8-10.8) Red Blood Count 3.35 M/UL (4.70-6.10) L Hemoglobin 10.3 G/DL (14.2-18.0) L Hematocrit 32.3 % (42.0-52.0) L Mean Corpuscular Volume 96 FL (80-99) Mean Corpuscular Hemoglobin 30.7 PG (27.0-31.0) Mean Corpuscular Hemoglobin Concent 31.9 G/DL (32.0-36.0) L Red Cell Distribution Width 16.2 % (11.6-14.8) H Platelet Count 231 K/UL (150-450) Mean Platelet Volume 12.2 FL (6.5-10.1) H Neutrophils (%) (Auto) 49.6 % (45.0-75.0) Lymphocytes (%) (Auto) 33.8 % (20.0-45.0) Monocytes (%) (Auto) 10.2 % (1.0-10.0) H Eosinophils (%) (Auto) 5.2 % (0.0-3.0) H Basophils (%) (Auto) 1.2 % (0.0-2.0) Sodium Level 139 mEQ/L (135-145) Potassium Level 3.1 mEQ/L (3.4-4.9) L Chloride Level 97 mEQ/L (98-107) L Carbon Dioxide Level 30 mEQ/L (20-30) Anion Gap 12 (5-15) Blood Urea Nitrogen 8 mg/dL (7-23) Creatinine 0.7 mg/dL (0.7-1.2) Estimat Glomerular Filtration Rate > 60 mL/min (>60) Glucose Level 145 mg/dL (74-106) H Calcium Level 8.3 mg/dL (8.6-10.2) L Height (Feet): 5 Height (Inches): 5.00 Weight (Pounds): 120 General Appearance: no apparent distress, alert Cardiovascular: normal rate Respiratory/Chest: normal breath sounds, no respiratory distress Abdominal Exam: normal bowel sounds, non tender, soft Hutson,Radha Enio N.P. May 10, 2017 14:30
[2017-05-10 16:00] VITALS: BP 152/80
[2017-05-10 20:00] VITALS: BP 158/97
[2017-05-10] MEDS ORDERED: TPN IV SCH (21:00)
[2017-05-10] MEDS ORDERED: Phytonadione 10 mg/mL 1ml amp SUBQ SCH (21:00)
[2017-05-10] MEDS ORDERED: FAT EMULSION 20% IV SCH (21:00)
[2017-05-11] VITALS: BP 146/90
[2017-05-11 04:00] VITALS: BP 142/88
[2017-05-11] MEDS: SandoSTATIN 100mcg/ml amp SUBQ SCH ×2 (05:43→13:52)
[2017-05-11 07:20] LABS: EOSINOPHILS % (AUTO) 13.4 % (0.0-3.0); LYMPHOCYTES % (AUTO) 45.5 % (20.0-45.0); MEAN CORPUSCULAR HEMOGLOBIN 31.3 PG (27.0-31.0); MEAN CORPUSCULAR HGB CONC 32.2 G/DL (32.0-36.0); MEAN CORPUSCULAR VOLUME 97 FL (80-99); MEAN PLATELET VOLUME 15.7 FL (6.5-10.1); MONOCYTES % (AUTO) 6.8 % (1.0-10.0); NEUTROPHILS % (AUTO) 33.4 % (45.0-75.0); PLATELET COUNT 304 K/UL (150-450); RED BLOOD COUNT 3.65 M/UL (4.70-6.10); RED CELL DISTRIBUTION WIDTH 16.1 % (11.6-14.8); WHITE BLOOD COUNT 7.7 K/UL (4.8-10.8)
[2017-05-11 07:27] LABS: ALANINE AMINOTRANSFERASE 74 U/L (3-41); ALBUMIN/GLOBULIN RATIO 0.5 (1.0-2.7); ANION GAP 8 (5-15); ASPARTATE AMINO TRANSFERASE 74 U/L (5-40); CALCIUM 8.6 mg/dL (8.6-10.2); CARBON DIOXIDE 33 mEQ/L (20-30); CHLORIDE 93 mEQ/L (98-107); CREATININE 0.8 mg/dL (0.7-1.2); GLOMERULAR FILTRATION RATE > 60 mL/min (>60); HEMOLYSIS 4; POTASSIUM 3.4 mEQ/L (3.4-4.9); SODIUM 134 mEQ/L (135-145); TOTAL PROTEIN 7.4 g/dL (6.6-8.7)
[2017-05-11 07:43] LABS: BILIRUBIN,DIRECT 1.8 mg/dL (0.1-0.3)
[2017-05-11 08:00] VITALS: BP 163/101
--- NOTE | 2017-05-11 09:19 | Pulmonology Progress Note ---
Assessment/Plan Assessment/Plan IMPRESSION: 1. Hypokalemia. Today K 3.4 2. Status post surgery for neuroendocrine tumor/partical gastrectomy. DISCUSSION: Seen by Gastroenterology. Replace potassium. IV fluids. Await UGI series and US abd Subjective Interval Events: Better Constitutional: Reports: no symptoms HEENT: Repors: no symptoms Respiratory: Reports: no symptoms Cardiovascular: Reports: no symptoms Allergies: Coded Allergies: LORAZEPAM (Verified Allergy, Unknown, 05/06/17) Objective Last 24 Hour Vital Signs Date Time Temp Pulse Resp B/P Pulse Ox O2 Delivery O2 Flow Rate FiO2 05/11/17 04:00 98.2 80 20 142/88 100 Room Air 05/11/17 00:00 97.8 76 20 146/90 98 Room Air 05/10/17 21:33 97.0 05/10/17 20:00 97.6 70 19 158/97 98 Room Air 05/10/17 16:00 97.0 61 16 152/80 98 Room Air 05/10/17 12:11 97.0 75 16 161/100 98 Room Air Intake and Output 05/10/17 05/11/17 19:00 07:00 Intake Total 0 ml 236 ml Output Total 800 ml 250 ml Balance -800 ml -14 ml Intake Oral 0 ml IV Total 236 ml Output Urine Total 800 ml 250 ml # Bowel Movements 1 General Appearance: no acute distress HEENT: normocephalic Respiratory/Chest: chest wall non-tender, lungs clear Cardiovascular: normal peripheral pulses, normal rate Abdomen: normal bowel sounds Laboratory Tests 05/11/17 06:05: White Blood Count 7.7, Red Blood Count 3.65L, Hemoglobin 11.4L, Hematocrit 35.4L , Mean Corpuscular Volume 97, Mean Corpuscular Hemoglobin 31.3H, Mean Corpuscular Hemoglobin Concent 32.2, Red Cell Distribution Width 16.1H, Platelet Count 304, Mean Platelet Volume 15.7H, Neutrophils (%) (Auto) 33.4L, Lymphocytes (%) (Auto) 45.5H, Monocytes (%) (Auto) 6.8, Eosinophils (%) (Auto) 13.4H, Basophils (%) (Auto) 1.0, Sodium Level 134L, Potassium Level 3.4, Chloride Level 93L, Carbon Dioxide Level 33H, Anion Gap 8, Blood Urea Nitrogen 7 , Creatinine 0.8, Estimat Glomerular Filtration Rate > 60, Glucose Level 113H, Calcium Level 8.6, Total Bilirubin 3.0H, Direct Bilirubin 1.8H, Aspartate Amino Transf (AST/SGOT) 74H, Alanine Aminotransferase (ALT/SGPT) 74H, Alkaline Phosphatase 556H, Total Protein 7.4, Albumin 2.7L, Globulin 4.7, Albumin/ Globulin Ratio 0.5L Current Medications Medications (Trade) Dose Ordered Sig/Horacio Route PRN Reason Start Time Stop Time Status Last Admin Dose Admin Acetaminophen (Tylenol) 650 mg Q6H PRN RECTAL Prn Headache/Temp > 101 05/07/17 03:15 06/06/17 03:14 Acetaminophen/ Hydrocodone Bitart ([place] 5/325) 1 tab Q6H PRN ORAL Moderate Pain (Pain Scale 4-6) 05/07/17 05:15 05/14/17 05:14 05/07/17 05:17 Chlorhexidine Gluconate (Ramona-Hex 2%) 1 applic DAILY TOPIC 05/07/17 09:00 06/06/17 08:59 05/09/17 08:28 Diphenhydramine HCl (Benadryl) 25 mg BEDTIME PRN IVP INSOMNIA 05/07/17 03:15 06/06/17 03:14 05/08/17 23:48 Fat Emulsion Intravenous/Amino Acids/ Electrolytes/ Dextrose (Intralipids/Tpn) 1,416 ml @ 59 mls/hr Q24H IV 05/10/17 21:00 06/09/17 20:59 05/10/17 21:37 Heparin Sodium (Porcine) (Heparin 5000 units/ml) 5,000 units EVERY 12 HOURS SUBQ 05/07/17 09:00 06/06/17 08:59 05/10/17 20:59 Hydromorphone HCl (Dilaudid) 2 mg Q3H PRN IVP Severe Breakthru Pain (>7) 05/07/17 03:15 05/14/17 03:14 05/11/17 01:27 Lactulose (Cephulac) 20 gm HSPRN PRN ORAL Constipation 05/07/17 03:15 06/06/17 03:14 05/07/17 05:16 Octreotide Acetate (SandoSTATIN) 100 mcg Q8HR SUBQ 05/07/17 06:00 06/06/17 05:59 05/11/17 05:43 Ondansetron HCl 4 mg 4 mg Q6H PRN IVP Nausea & Vomiting 05/08/17 15:00 06/07/17 14:59 05/11/17 01:26 Pantoprazole (Protonix) 40 mg DAILY IVP 05/07/17 09:00 06/06/17 08:59 05/09/17 08:26 Phytonadione (Vitamin K) 10 mg Tu@2100 SUBQ 05/10/17 21:00 06/09/17 20:59 05/10/17 20:54 Vinnie Swanson MD May 11, 2017 09:19
[2017-05-11] MEDS: Pantoprazole Inj IVP SCH (09:24)
[2017-05-11] MEDS: Dyna-Hex 2% Top Sol 8oz TOPIC SCH (09:25)
[2017-05-11] MEDS: Heparin 5000 units/ml inj SUBQ SCH (09:30)
[2017-05-11] MEDS ORDERED: Fleet's Enema 133ml RECTAL ONE (10:00)
--- NOTE | 2017-05-11 11:01 | Diagnostic Imaging Report ---
Indication: Bias Machine Operator Helper film for intended upper GI study Technique: Supine view of the abdomen Comparison: 05/10/2017 Findings: Again demonstrated is contrast within the colon, which if anything appears denser than on the previous study. In addition, there is more contrast within the proximal colon than was evident previously. There is evidence of extensive colonic diverticulosis, with contrast and multiple diverticula. Bowel gas pattern is unremarkable. A surgical clip is seen project over the ascending colon, may be a mural endoscopically introduced clip. Impression: Persistent bowel contrast, no less extensive and in fact somewhat worse than on the previous days exam. As this could limit the sensitivity of upper GI study, study again postponed. The findings and recommendations for cleansing enemas were discussed with Dr. Trevizo previously
[2017-05-11 11:29] VITALS: BP 150/91
--- NOTE | 2017-05-11 12:43 | GI Progress Note ---
Assessment/Plan Problems: (1) Transaminitis ICD Codes: R74.0 - Nonspecific elevation of levels of transaminase and lactic acid dehydrogenase [LDH] SNOMED: 701611063 (2) Hypoalbuminemia ICD Codes: E88.09 - Other disorders of plasma-protein metabolism, not elsewhere classified SNOMED: 902449288 (3) Anemia ICD Codes: D64.9 - Anemia, unspecified SNOMED: 638167053 (4) History of gastrectomy ICD Codes: Z90.3 - Acquired absence of stomach [part of] SNOMED: 97022652, 033988542 (5) Leukocytosis ICD Codes: D72.829 - Elevated white blood cell count, unspecified SNOMED: 793656074, 831949169 Qualifiers: Qualified Codes: D72.828 - Other elevated white blood cell count (6) Hypokalemia ICD Codes: E87.6 - Hypokalemia SNOMED: 12644160, 899562038 Status: unchanged Status Narrative Discussed with Dr. Trevizo. Assessment/Plan ASSESSMENT AND PLAN: 1. Neuroendocrine tumor of the stomach, tumor/partical gastrectomy. >> KEEP NPO. Start TPN. 2. Diarrhea. 3. Rule out Clostridium difficile >> negative 4. Anemia. 5. Abnormal liver function tests. hepatitis panel >> negative OB stool negative PLAN: start TPN fu UGI r/o anastomotic leak from gastrectomy >> study postponed due to residual contrast from previous imaging study monitor LFTs monitor H&H, transfuse prn hold GI procedures for now fu labs Subjective Subjective limited Objective Last 24 Hour Vital Signs Date Time Temp Pulse Resp B/P Pulse Ox O2 Delivery O2 Flow Rate FiO2 05/11/17 11:29 96.3 65 18 150/91 97 Room Air 05/11/17 08:00 97.6 68 18 163/101 97 Room Air 05/11/17 04:00 98.2 80 20 142/88 100 Room Air 05/11/17 00:00 97.8 76 20 146/90 98 Room Air 05/10/17 21:33 97.0 05/10/17 20:00 97.6 70 19 158/97 98 Room Air 05/10/17 16:00 97.0 61 16 152/80 98 Room Air Intake and Output 05/10/17 05/11/17 19:00 07:00 Intake Total 0 ml 236 ml Output Total 800 ml 250 ml Balance -800 ml -14 ml Intake Oral 0 ml IV Total 236 ml Output Urine Total 800 ml 250 ml # Bowel Movements 1 Laboratory Tests Test 05/11/17 06:05 White Blood Count 7.7 K/UL (4.8-10.8) Red Blood Count 3.65 M/UL (4.70-6.10) L Hemoglobin 11.4 G/DL (14.2-18.0) L Hematocrit 35.4 % (42.0-52.0) L Mean Corpuscular Volume 97 FL (80-99) Mean Corpuscular Hemoglobin 31.3 PG (27.0-31.0) H Mean Corpuscular Hemoglobin Concent 32.2 G/DL (32.0-36.0) Red Cell Distribution Width 16.1 % (11.6-14.8) H Platelet Count 304 K/UL (150-450) Mean Platelet Volume 15.7 FL (6.5-10.1) H Neutrophils (%) (Auto) 33.4 % (45.0-75.0) L Lymphocytes (%) (Auto) 45.5 % (20.0-45.0) H Monocytes (%) (Auto) 6.8 % (1.0-10.0) Eosinophils (%) (Auto) 13.4 % (0.0-3.0) H Basophils (%) (Auto) 1.0 % (0.0-2.0) Sodium Level 134 mEQ/L (135-145) L Potassium Level 3.4 mEQ/L (3.4-4.9) Chloride Level 93 mEQ/L (98-107) L Carbon Dioxide Level 33 mEQ/L (20-30) H Anion Gap 8 (5-15) Blood Urea Nitrogen 7 mg/dL (7-23) Creatinine 0.8 mg/dL (0.7-1.2) Estimat Glomerular Filtration Rate > 60 mL/min (>60) Glucose Level 113 mg/dL (74-106) H Calcium Level 8.6 mg/dL (8.6-10.2) Phosphorus Level 2.7 mg/dL (2.5-4.8) Total Bilirubin 3.0 mg/dL (0.0-1.2) H Direct Bilirubin 1.8 mg/dL (0.1-0.3) H Aspartate Amino Transf (AST/SGOT) 74 U/L (5-40) H Alanine Aminotransferase (ALT/SGPT) 74 U/L (3-41) H Alkaline Phosphatase 556 U/L (40-129) H Total Protein 7.4 g/dL (6.6-8.7) Albumin 2.7 g/dL (3.5-5.2) L Globulin 4.7 g/dL Albumin/Globulin Ratio 0.5 (1.0-2.7) L Height (Feet): 5 Height (Inches): 5.00 Weight (Pounds): 120 General Appearance: no apparent distress, alert Cardiovascular: normal rate Respiratory/Chest: normal breath sounds, no respiratory distress Abdominal Exam: normal bowel sounds, non tender, soft, other - TPN Radha Hutson N.P. May 11, 2017 12:43
[2017-05-11 16:00] VITALS: BP 149/92
--- NOTE | 2017-05-11 16:26 | Cardiology Report ---
APPROVED REPORT EKG Measurement Heart [id number] UT [id number] Sinus rhythm with short UT Otherwise normal ECG
[2017-05-11] MEDS ORDERED: BENADRYL25 MG IVP (18:26)
[2017-05-11] MEDS ORDERED: ZOFRAN 4 MG4 MG/2 ML IV (18:27)
[2017-05-11] MEDS ORDERED: INTRALIPID250 ML IV (18:42)
[2017-05-11] MEDS ORDERED: D5NS 1000ml IV ONE (20:22)
--- NOTE | 2017-05-12 15:40 | Discharge Summary ---
Discharge Summary Hospital Course Date of Admission May 06, 2017 at 23:00 Date of Discharge May 11, 2017 at 20:23 Admitting Diagnosis HypoK and Leukocytosis HPI Elio Blandon is a 71 year old male who was admitted on May 06, 2017 at 23:00 for Hypokalemiaand Leukocytosis Hospital Course [id number] Discharge Discharge Disposition Patient was discharged to SNF/Subacute Facility(03) Discharge Diagnoses: Cathy Oakes NP May 12, 2017 15:40
--- NOTE | 2017-05-13 05:30 | Discharge Summary 2 SIG ---
DATE OF ADMISSION: 05/06/2017 DATE OF DISCHARGE: 05/11/2017 CONSULTANTS: Ariel Trevizo M.D. 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 He had prolonged hospitalization at that time, presented to [facility] complaining of abdominal pain and feeling weak. On evaluation at ED, laboratories showed elevated WBC 15 and potassium was 2.5. Abdomen was diffusely tender. The patient was admitted to medical floor for hypokalemia and abdominal pain. He was seen by Dr. Trevizo. Abdominal x-ray showed extensive contrast material within the upper abdomen resulting in nondiagnostic exam. C. difficile was negative. Potassium was replenished. The patient was kept NPO and was started on TPN. Stool OB was negative. Repeat abdominal x-ray showed persistence of residual contrast. He was given Fleet enema and the patient was eventually discharged to [facility] facility to continue on TPN. FINAL DIAGNOSES: 1. Hypokalemia. 2. Status post surgery for neuroendocrine tumor/partial gastrectomy. 3. Transaminitis. 4. Hypoalbuminemia. 5. Anemia. 6. Leukocytosis. Vinnie Swanson M.D. I have been assigned to dictate discharge summary on this account and I was not involved in the patient's management. Cathy Oakes N.P. DR: ROSELYN JOB#: [id number] CC: JENNIFER
== END 2017-05-11 20:23 | DRG 641 ==
LOC: EDBD 18:28 → EMR 22:23 → 4E 23:00 → EDBEDREQ 23:20 → 4E 05-07 01:30
DX: E87.6 Hypokalemia (principal); E88.09 Other disorders of plasma-protein metabolism, not elsewhere classified; D64.9 Anemia, unspecified; R19.7 Diarrhea, unspecified; R94.5 Abnormal results of liver function studies; D72.829 Elevated white blood cell count, unspecified; R74.0 Nonspecific elevation of levels of transaminase and lactic acid dehydrogenase [LDH]; Z90.3 Acquired absence of stomach [part of]
CPT/HCPCS: 36415; 74000; 76700; 80048; 80053; 82248; 82270; 82378; 82607; 82746; 82962; 83540; 83550; 83735; 83880; 84100; 85025; 86705; 86709; 86803; 87324; 87340; 93005; J2405; J8499